=== PATIENT | female | born 1945 | race Caucasian/White ===

== ENCOUNTER 2019-05-06 13:48 | Outpatient (CLI) | payer MEDICARE, OTHER, SELFPAY ==
--- NOTE | 2019-05-10 10:49 | ONC FU_ITS ---
Dr. Short Patient Follow-Up Note Patient: Coni Olivares Unit #: [id number]: 1945 Dicatated By: Alf Short M.D.Date of Visit:May 06, 2019 Onc Med Follow-up/Prog Note Chief Complaint: Breast cancer. History of Present Illness: This is a 73 year-old woman with history of left breast cancer, stage IV, but with no evidence of disease. She was then found to have grade 1 infiltrating ductal carcinoma of the right breast, stage IA (T1c, N0, M0), ER/AZ positive and HER-2/bryon nonamplified. She had undergone left modified radical mastectomy for breast cancer in June of 1998. I was not able to obtain any of those records. She apparently did not receive adjuvant chemotherapy at that time. She did start adjuvant tamoxifen, but it was stopped after short time because of severe hot flashes. In July 2001 she underwent left upper lobectomy for a solitary pulmonary nodule. This was thought to be a solitary metastasis. At that time she was given adjuvant chemotherapy with 4 cycles of CAF, which she completed in October 2001. She was then given adjuvant hormonal therapy with Arimidex, which was stopped in June 2006 after completing 5 years of treatment. She underwent delayed left breast reconstruction in 2004. She was seen for a scheduled follow-up visit on 11/17/2015. At that time she had some nodularity in her right breast just lateral to the nipple areolar complex. She had subsequent evaluation with diagnostic mammogram and ultrasound, and those did appear suspicious. She was then seen by Dr. Skinner. She underwent excisional biopsy on 12/16/2015. Pathology showed grade 1 infiltrating ductal carcinoma. There was a component of high-grade DCIS, estimated 25% of the tumor volume. The tumor was ER positive at 93% and ER positive at 89%. The Ki-67 was intermediate at 17%. The tumor was negative for overexpression of HER-2/bryon, 2+ by IHC with amplification ratio 1.2 and 1.9 HER-2 copies/cell by FISH. On 12/30/2015 she underwent re-excision lumpectomy with right sentinel axillary lymph node biopsy. Pathology on the reexcision did show a microscopic focus residual DCIS. Tumor was noted within 1 mm of the superior margin. Two sentinel lymph nodes were free of metastatic tumor. I requested an Oncotype DX analysis of her tumor. The report came back as insufficient carcinoma present for analysis. This was difficult for me to understand, as her tumor measured 1.8 x 1.4 cm. However, a second sample was subsequently submitted, and it also came back insufficient for analysis. In the meantime, on 02/15/2016 she had presented to the emergency room in [place] with chest pain. She was found to have acute non-ST elevation myocardial infarction. She underwent semiurgent left heart catheterization with angioplasty and stent placement to the left anterior descending artery. She appeared stable clinically following that procedure, but she did require a portable defibrillator. She underwent radiation therapy to the right breast. She completed treatment on 05/10/2016 to a total dose of 5,856 cGy. She tolerated it well. Her other medical illnesses include hypertension, hyperlipidemia, type 2 diabetes, GERD, osteoporosis, and chronic anxiety. She also has a history of chronic urticaria. She indicates she was found to have a pituitary adenoma in 2011. She has a history of smoking a pack and a half of cigarettes daily for 30 years. She had quit for a period of 8 years, but then started smoking again, at least 1 pack of cigarettes daily. She does not drink alcohol. INTERIM HISTORY: I had seen her for a follow-up visit on 07/27/2016. At that time had reviewed options for adjuvant hormonal therapy. She was still having significant pain, and I deferred starting treatment pending a 1 month follow-up visit. She was also supposed to get a DEXA scan. She failed to come in for those appointments, and as of her follow-up visit on 12/07/2016 she had not started any treatment. Following that visit she did have her DEXA scan on 01/03/2017. It showed evidence of osteopenia with T score -2.2 in the lumbar spine. At that time I had recommended adjuvant hormonal therapy with exemestane, but for some reason it did not get started. In April 2017 she underwent kyphoplasty for a vertebral compression fracture at T12. Following her visit on 06/15/2017 she did start exemestane 25 mg daily. As of her followup visit in October 2017 she appeared stable clinically. She is seen for a follow-up visit. She has not been seen since her visit here in October 2017. To the best of my knowledge she has continued taking the exemestane, at least up until recently, as we were able to verify with her pharmacy that it was refilled as recently as 03/14/2019. She says her energy is about the same. She does have limited activity. ECOG score is 2. She says her appetite is okay, but her weight is down 20 pounds since her visit here in October 2017. She has no fever, night sweats, or hot flashes. She has shortness of breath with activity. She has a cough productive of yellowish sputum. She is still smoking 1 pack of cigarettes daily. She does not complain of chest pain. She has no GI complaints. She has frequent urination. She has no significant joint or bone pain. She does not complain of headache. She sometimes has dizziness. She has no focal neurologic symptoms. Medications: Citalopram Hydrobromide 1 (40 mg) Tablet Oral daily, Lisinopril 1 (20 mg) Tablet Oral daily, LORazepam 1 (0.5 mg) Tablet Oral b.i.d., MetFORMIN HCl 1 (1000 mg) Tablet Oral daily, Morphine Sulfate (15 mg) Tablet Oral q 4 hours PRN, Simvastatin 1 (20 mg) Tablet Oral daily Allergies: Keflex Review of Systems: Constitutional - Her energy level is the same. Her activity is limited. Appetite is OK, but she has lost weight. No fever, chills, hot flashes, or night sweats. ECOG score is 2, ENMT - She has sinus congestion/drainage. No mouth sores. No sore throat or difficulty swallowing, Hematologic/Lymphatic - She bruises easily, Respiratory - She has shortness of breath with activity. She has cough productive of yellowish sputum. No pleuritic pain or hemoptysis, Cardiovascular - No angina pain. No palpitations, Gastrointestinal - No nausea or vomiting. No heartburn or acid reflux. No diarrhea or constipation. No blood in the stool or black stools, Genitourinary (F) - No dysuria or hematuria. She has urinary frequency. No urgency or incontinence, Musculoskeletal - She has no significant joint or bone pain, Neurologic - No headache. She sometimes has dizziness. No numbness/paresthesias or other focal neurologic symptoms, Psychiatric - No anxiety or depression. No insomnia. Vital Signs: Performed on May 06, 2019 13:53 Height - 63.00 in Weight - 136.2 lbs (LOW) BSA - 1.64 sq.m BMI - 24.13 Temperature - 96.6 F (LOW) Pulse - 88 /min Respiration - 18 /min BP - 118/71 mm(hg) O2 Sat - 96 % Pain - 0 Physical Examination: Constitutional - She looks pretty good generally, Eyes - Sclerae nonicteric. Conjunctivae clear, ENMT - No lesions noted in the oral cavity, Hematologic/Lymphatic - No cervical or clavicular adenopathy, Respiratory - Lungs show some decrease in air movement bilaterally. There are mild expiratory rhonchi, Cardiovascular - Heart rhythm is regular. There is no murmur, gallop, or rub noted, Breasts - The right breast is generally firm and lumpy. There is no suspicious mass noted. There are no lesions noted in the left chest/breast reconstruction. There is no axillary adenopathy, Abdomen - Soft. Liver and spleen are not enlarged. There is no abdominal mass or ascites noted and there is no inguinal adenopathy, Extremities - No edema. Her feet are cool to touch. She has palpable dorsalis pedis pulses bilaterally, Neurologic - No focal neurologic deficits noted. Impression: 1. The patient has grade 1 infiltrating ductal carcinoma of the right breast, stage IA (T1c, pN0, M0), ER/AZ positive and HER-2/bryon negative. Oncotype DX was requested but not performed, as the specimen was reported to be insufficient for analysis. 2. She underwent excisional biopsy of right breast mass on 12/16/2015 followed by reexcision lumpectomy and right sentinel axillary lymph node biopsy on 12/30/2015. 3. She completed radiation therapy to the right breast on 05/10/2016, total dose 5856 cGy. 4. Her treatment was complicated by acute non-ST elevation myocardial infarction on 02/15/2016, for which she underwent coronary angioplasty/stent placement to the left anterior descending artery. 5. She had undergone left modified radical mastectomy for breast cancer in 1998. 6. She underwent left upper lobectomy for a solitary pulmonary nodule in 2001. This was thought to represent a solitary metastasis. 7. She then received adjuvant chemotherapy with 4 cycles of CAF, completed in October 2001. She received 5 years of adjuvant hormonal therapy with Arimidex, completed in June 2006. She had subsequently been followed on observation. Her other medical illnesses include: 8. Hypertension. 9. Hyperlipidemia. 10. Type II diabetes. 11. GERD. 12. Osteoporosis with vertebral compression fracture. 13. Vitamin D deficiency. 14. Chronic anxiety. 15. COPD. 16. Nicotine dependence (cigarettes). In May 2017 she began adjuvant hormonal therapy with exemestane 25 mg daily. She also began treatment with Prolia for osteoporosis. As of her follow-up visit in October 2017 she had been tolerating the exemestane without adverse effects, and there appear to be no evidence for recurrence of her breast cancer. At that point she did have evidence of diabetes, for which she was scheduled to see Dr. Delgado. She was then lost to follow-up, but she apparently has continued taking the exemestane, at least up until recently. Since her last visit there does appear to been some decline in her performance status, and she has had significant weight loss. There are no symptoms or obvious findings to suggest recurrence of her breast cancer. Plan: She will be scheduled to have lab studies, including CBC and comprehensive metabolic profile, and she will be scheduled for surveillance mammogram, which is overdue. She will have further evaluation as indicated. In the absence of any evidence of recurrence of her breast cancer, she will continue adjuvant hormonal therapy with exemestane 25 mg daily. Signed By: Alf Short M.D. <<Signature on File>>
== END 2019-05-06 13:49 | disposition home or self-care (01) ==
PROVIDERS: Family Provider Family Medicine; PCP Family Medicine; Visit Provider Internal Medicine Medical Oncology
DX: C50.811 Malignant neoplasm of overlapping sites of right female breast (principal); Z17.0 Estrogen receptor positive status [ER+]; E55.9 Vitamin D deficiency, unspecified; Z85.3 Personal history of malignant neoplasm of breast; I25.2 Old myocardial infarction; I10 Essential (primary) hypertension; E78.5 Hyperlipidemia, unspecified; E11.9 Type 2 diabetes mellitus without complications; K21.9 Gastro-esophageal reflux disease without esophagitis; M81.0 Age-related osteoporosis without current pathological fracture; F41.9 Anxiety disorder, unspecified; L50.9 Urticaria, unspecified; F17.210 Nicotine dependence, cigarettes, uncomplicated; Z79.811 Long term (current) use of aromatase inhibitors; Z90.2 Acquired absence of lung [part of]; Z92.21 Personal history of antineoplastic chemotherapy; Z95.5 Presence of coronary angioplasty implant and graft; Z95.810 Presence of automatic (implantable) cardiac defibrillator; Z92.3 Personal history of irradiation
CPT/HCPCS: 99214

== ENCOUNTER 2019-05-08 10:41 | Outpatient (CLI) | payer MEDICARE, OTHER, SELFPAY ==
--- NOTE | 2019-05-08 10:55 | MM_ITS ---
WS: [id number] DIAGNOSTIC RIGHT DIGITAL MAMMOGRAM WITH CAD and displacement views. HISTORY: History of breast cancer, LEFT mastectomy. COMPARISON: 10/26/2017 and 01/03/2017 TECHNIQUE: RIGHT craniocaudad, mediolateral oblique, and mediolateral views are submitted. Kori dis placement views. Computer aided detection utilized. Breast composition: There are scattered areas of fibroglandular density. Benign scattered calcificati ons throughout the breast. No soft tissue masses. Implants remains intact. MM/[place] [id number] IMPRESSION: BI-RADS: 2-Benign FOLLOW UP: 1 Year Follow-up
[2019-05-08 11:58] LABS: Basophils # 0.1 10^3/uL (0.0-0.1); Basophils % 0.7 %; Eosinophils # 0.1 10^3/uL (0.0-0.8); Eosinophils % 1.1 %; Hematocrit 47.2 % (37.0-47.0); Hemoglobin 16.2 g/dL (11.5-15.3); Lymphocytes % 10.2 %; Mean Corpuscular HGB Conc 34.3 g/dL (30.0-36.0); Mean Corpuscular Hemoglobin 32.1 pg (28.0-34.0); Mean Corpuscular Volume 93.5 fL (81-99); Mean Platelet Volume 9.8 fL (7.4-10.4); Monocytes # 0.5 10^3/uL (0.2-0.9); Monocytes % 4.6 %; Neutrophils # 8.4 10^3/uL (1.8-7.7); Neutrophils % 83.1 %; Nucleated Red Blood Cells % 0 %; Platelet Count 295 10^3/cmm (130-400); Red Blood Count 5.05 10^6/uL (4.1-5.3); Red Cell Distribution Width 13.7 % (12.1-15.1); White Blood Count 10.1 10^3/uL (4.0-10.0)
[2019-05-08 12:15] LABS: Alanine Aminotransferase 9 U/L (0-33); Albumin Level 4.1 g/dL (3.5-5.2); Alkaline Phosphatase 90 IU/L (35-105); Anion Gap 14.5 (5-19); Aspartate Amino Transferase 11 U/L (0-32); Blood Urea Nitrogen 10 mg/dL (8-23); Calcium 10.2 mg/Dl (8.8-10.2); Carbon Dioxide 31 mmol/L (22-29); Chloride 93 mmol/L (98-107); Glucose 451 mg/dL (74-106); Potassium 4.5 mmol/L (3.5-5.1); Sodium 134 mmol/L (136-145); Total Bilirubin 0.6 mg/dL (0.15-1.2); Total Protein 7.1 g/dL (6.6-8.7)
== END 2019-05-08 10:42 | disposition home or self-care (01) ==
LOC: ONCMED 10:48
PROVIDERS: Family Provider Family Medicine; PCP Family Medicine; Visit Provider Internal Medicine Medical Oncology
DX: Z85.3 Personal history of malignant neoplasm of breast (principal); Z90.12 Acquired absence of left breast and nipple; Z96.89 Presence of other specified functional implants
CPT/HCPCS: 36415; 77065; 80053; 85025

== ENCOUNTER 2020-09-15 21:42 | Inpatient (IN) | payer MEDICARE, OTHER, SELFPAY ==
[2020-09-15 21:55] VITALS: BP 190/81; PULSE 91; RESP 16; TEMP 36.9; O2SAT 96; BMI 19.8
--- NOTE | 2020-09-15 21:57 | CTR_ITS ---
PROCEDURE INFORMATION: Exam: CT Head Without Contrast Exam date and time: 09/15/2020 10:02 PM Age: 75 years old Clinical indication: Altered mental status/memory loss; Patient HX: AMS. Brought by ems/pd for wellness check. History of dementia. TECHNIQUE: Imaging protocol: Computed tomography of the head without contrast. Radiation optimization: All CT scans at this facility use at least one of these dose optimization techniques: automated exposure control; mA and/or kV adjustment per patient size (includes targeted exams where dose is matched to clinical indication); or iterative reconstruction. COMPARISON: CT head wo con* [id number] 02/19/2017 1:51 PM RADIATION DOSE METRICS: Total DLP (mGy-cm): 553.2 FINDINGS: Brain: Normal. No hemorrhage. Unremarkable white matter. No mass effect. Cerebral ventricles: No ventriculomegaly. Bones/joints: Unremarkable. No acute fracture. Paranasal sinuses: Visualized sinuses are unremarkable. No fluid levels. Mastoid air cells: Visualized mastoid air cells are well aerated. Soft tissues: Unremarkable. CT/CT head wo con* [id number] IMPRESSION: Negative for intracranial hemorrhage or mass effect. Radiation Dose CTDIVOL = (mGy): DLP = 553.2 (mGy-cm)
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
[2020-09-15 22:30] LABS: Basophils # 0.1 10^3/uL (0.0-0.1); Basophils % 0.6 %; Eosinophils # 0.2 10^3/uL (0.0-0.8); Eosinophils % 1.7 %; Hematocrit 35.1 % (37.0-47.0); Hemoglobin 11.9 g/dL (11.5-15.3); Lymphocytes # 1.1 10^3/uL (0.8-4.8); Lymphocytes % 8.5 %; Mean Corpuscular HGB Conc 33.9 g/dL (30.0-36.0); Mean Corpuscular Hemoglobin 27.3 pg (28.0-34.0); Mean Corpuscular Volume 80.5 fL (81-99); Mean Platelet Volume 9.2 fL (7.4-10.4); Monocytes # 0.7 10^3/uL (0.2-0.9); Monocytes % 4.9 %; Neutrophils # 11.19 10^3/uL (1.8-7.7); Neutrophils % 83.9 %; Nucleated Red Blood Cells % 0 %; Platelet Count 566 10^3/cmm (130-400); Red Blood Count 4.36 10^6/uL (4.1-5.3); Red Cell Distribution Width 13.5 % (12.1-15.1); White Blood Count 13.3 10^3/uL (4.0-10.0)
[2020-09-15 22:51] LABS: Alanine Aminotransferase 6 U/L (0-33); Albumin Level 3.9 g/dL (3.5-5.2); Alkaline Phosphatase 97 IU/L (35-105); Anion Gap 16.1 (5-19); Aspartate Amino Transferase 6 U/L (0-32); Blood Urea Nitrogen 14 mg/dL (8-23); Calcium 9.5 mg/dL (8.5-10.5); Carbon Dioxide 29 mmol/L (22-29); Chloride 89 mmol/L (98-107); Creatinine Clr Calc Pharmacy 48.8852; Globulin 3.6 g/dL (1.3-4.6); Glucose 465 mg/dL (65-115); Osmolality Calculated 291 mOsm/kg (285-295); Potassium 4.1 mmol/L (3.5-5.1); Sodium 130 mmol/L (136-145); Total Bilirubin 0.3 mg/dL (0.15-1.2); Total Protein 7.5 g/dL (6.6-8.7)
[2020-09-15 22:52] LABS: Lactic Sepsis W/Reflex 0.9 mmol/L (0.5-2.2)
[2020-09-15] MEDS: insulin regular-human 100 units/1 mL 10 UNIT IVP (23:37)
[2020-09-15 23:40] VITALS: BP 196/89; PULSE 89; RESP 17; O2SAT 96
[2020-09-15] MEDS: sodium chloride 0.9% 500 ML 999 ML IV (23:40)
[2020-09-16] VITALS (10 sets, daily range): BP systolic 158–175; BP diastolic 58–88; PULSE 76–96; RESP 16–20; TEMP 36.6–36.9; O2SAT 93–100
[2020-09-16 02:14] LABS: Ketone (Acetest) Serum Negative (Negative)
[2020-09-16 02:21] LABS: ABG PCO2 44.5 mmHg (35-45); ABG PH Result 7.46 (7.35-7.45); Alveolar-Arterial Oxygen Gradi 3.3 mmHg (5-10); Base Excess ABG 7.3 mmol/L (-2.0-2.0); Blood Gas Sample Site Brachial, right; Blood Gas Sample Type Arterial; Carboxyhemoglobin 3.9 %THgb (0.4-20.1); HCO3 ABG 31.9 mmol/L (22-26); HGB O2 Sat 91.4 % (95-100); Ionized Calcium Level - ABG 1.2 mmol/L (1.1-1.4); Methemoglobin 0.7 % (0.4-1.5); Oxygen Device ROOM AIR; Oxygen Saturation ABG 95.9; Potassium Level - ABG 4.3 mmol/L (3.5-5.0); Total Hemoglobin 10.5 g/dL (12-16)
[2020-09-16 02:22] LABS: CKMB 3.2 ng/mL (0-5.34); Creatine Phosphokinase 33 U/L (26-192)
[2020-09-16] MEDS: insulin regular-human 100 units/1 mL 10 UNIT IVP (02:50)
[2020-09-16] MEDS: sodium chloride 0.9% 1,000 ML 999 ML IV (03:05)
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
[2020-09-16] MEDS: sodium chloride 0.9% 1,000 ML 75 ML IV (06:08)
[2020-09-16] MEDS: enoxaparin 40 mg/0.4 mL Syringe SUBCUT (06:09)
[2020-09-16 06:33] LABS: Glucose Point of Care 437 mg/dL (70-110)
[2020-09-16] MEDS: aspirin 81 mg EC Tablet PO (08:22)
[2020-09-16] MEDS: lisinopril 10 mg Tablet 20 MG PO (08:22)
[2020-09-16 10:10] LABS: Estmated Average Glucose 315; Hemoglobin A1C 12.6 % (4.0-6.0)
--- NOTE | 2020-09-16 10:10 | PC.CHAP ---
Pastoral Care Encounter/Spiritual Assessment Type of Contact [] Declined apprentice funeral director visit [] Patient/Family/Request visit [] Outpatient visit [] Follow-up visit [] Physician referral [] Code/Alert [x] Routine visit [] Staff referral [] Actively dying [] Patient sleeping [] Family support [] [] Out of room [] Palliative care [] [x] Receiving care in room [] Pre-surgical visit [] Trauma [] Long length of stay [] ICU visit [] Other: Relational/Emotional Strength [] Patient feels connected with others/family/visitors/staff [] Distress [] Loneliness/isolation [] Abandonment Spirituality of Patient [] Person of Amanda [] Attends Synagogue of their Amanda [] Believes in Prayer [] Reads Bible or Anglican materials [] There are Spiritual issues to be addressed [employer] District Clerk Interventions [] Prayer [] Active listening [] Non-anxious presence [] Spiritual/emotional support [] Crisis/trauma care [] Spiritual counseling [] Bereavement support [] Provided bereavement packet [] Provided Bible/devotional materials [] Provided toy/stuffed animal, coloring book to patient or family member [] Provided Communion [] Anointing/[place] [] Salvation [] Completed spiritual assessment [] Other: Impact on Illness or Injury [] Angry [] Fearful [] Anxious [] Often cries [] Exhaustion [] Unable to work [] Unable to attend gnosticism [] Unable to walk/stand [] Unable to read [] Unable to drive [] Unable to eat/drink [] Unable to sleep [] Unable to be with family [] Patient intubated [] Other: Summary Time spent with patient
[2020-09-16 10:19] LABS: Thyroid Stimulating Hormone 1.14 uIU/mL (0.27-4.20)
--- NOTE | 2020-09-16 10:30 | PC.NURSE ---
[facility]
[2020-09-16 11:05] LABS: Vitamin B12 327 pg/mL (232-1245)
--- NOTE | 2020-09-16 11:14 | CT_ITS ---
WS: [id number] CT ABDOMEN AND PELVIS WITH CONTRAST HISTORY: abdominal pain, , possible RLQ mass TECHNIQUE: Imaging performed of the abdomen and pelvis with IV contrast. Single phase imaging of the abdomen. Coronal and sagittal reformats are submitted. All CT scans at [facility] use at least one of these dose optimization techniques: automated exposure control; mA and/or kV adjustment per patient size (includes targeted exams where dose is matched to clinical indication); or iterativ e reconstruction. IV CONTRAST: Omnipaque 300; 95 mL IV. Oral contrast: No DLP: 743.94 mGy.cm COMPARISON: 07/13/2014 Lower thorax: Seen on the fluid dynamicist localizer and at the lung bases is a thick-walled probable cavitary l esion in the RIGHT lower lobe measuring 3.5 x 3.5 cm. Small bilateral pleural effusions. Heart is nor mal size. No hiatal hernia. Bilateral breast implants. Liver/biliary system: Normal size liver. Several low-attenuation masses within the liver. The largest in the RIGHT lobe measures 13 mm and was not present on the prior study from 2014. No portal vein th rombosis. There is mild central bile duct dilatation. Gallbladder: Status post cholecystectomy. Common bile duct is mildly prominent at 7 mm. Pancreas: Atrophic pancreas. Spleen: Normal size spleen. Heavy calcification within the splenic artery. Calcified 18 mm tortuous a rtery versus aneurysm. Adrenal glands: Normal. Right kidney: Mild cortical thinning. Moderate to severe hydronephrosis and hydroureter. Ureter is di lated to the urinary bladder. Left kidney: Mild diffuse cortical thinning. Moderate to severe hydronephrosis and hydroureter. Urete r is dilated to the bladder. Aorta: Mild atherosclerosis with no aneurysm. Lymphadenopathy: None. Free fluid: Mild soft tissue anasarca. Mesenteric edema with no significant amount of ascites. GI tract: No GI tract obstruction. Abdominal wall: Unremarkable abdominal wall. No hernia. Pelvis: Markedly distended urinary bladder. Bladder extends over length of 15 cm and there is very mi ld wall thickening. No focal mass. Bones: T12 20% compression fracture with vertebroplasty. CT/CT abdomen pelvis w con* [id number] IMPRESSION: 1. Partially visualized cavitary mass in the RIGHT lower lobe measures 3.5 x 3 .5 cm. This may be neoplastic or infectious/pulmonary abscess process. Recommen d further evaluation by CT. Chest CT with IV contrast recommended. 2. Small bilateral pleural effusions. 3. Severe bilateral hydroureteronephrosis. May be secondary to an overly diste nded urinary bladder. Consider urinary bladder catheterization. 4. Mild diffuse soft tissue anasarca. 5. Hypodensities within the liver are too small to characterize but very early metastatic lesions may be possible or hemangiomas or cysts. Recommend follow-u p CT abdomen and pelvis in 3 months. 6. Severe atherosclerosis aorta and splenic artery.
[2020-09-16 11:36] LABS: Glucose Point of Care 379 mg/dL (70-110)
[2020-09-16 12:12] LABS: Glucose Point of Care 445 mg/dL (70-110)
[2020-09-16] MEDS: iohexol 300 mg/mL 100 mL Btl IV ×2 (12:17→14:35)
--- NOTE | 2020-09-16 13:22 | CT_ITS ---
WS: [id number] CT CHEST WITH INTRAVENOUS CONTRAST HISTORY: right lung mass TECHNIQUE: Contiguous 5 mm axial imaging performed on the thorax. Coronal and sagittal reformats are submitted. All CT scans at [facility] use at least one of these dose optimization techniq ues: automated exposure control; mA and/or kV adjustment per patient size (includes targeted exams wh ere dose is matched to clinical indication); or iterative reconstruction. CONTRAST: Omnipaque 300; 75 mL IV. DLP: 440.12 mGy.cm COMPARISON: 11/12/2009. Lungs and central airway: Moderate pulmonary hyperexpansion from emphysema. Thick wall cavitary lesio n RIGHT lower lobe abuts the portion of the superior major fissure. Cavitary mass measures 4.3 x 4.1 cm. There is an additional solid mass in the medial LEFT upper lobe abutting the mediastinum and the descending aorta measuring 2.2 x 2.9 cm. Otherwise fibrotic changes. No additional nodules. Pleura: Small bilateral pleural effusions. Heart and pericardium: Normal size heart with no pericardial effusion. Mediastinum and dyllan: Numerous mediastinal and hilar lymph nodes. Lymph nodes in the anterior mediast inum with extension pretracheal and hilar regions and subcarinal. Largest confluent lymph node is sub carinal measuring 3.2 x 1.8 cm. Additional enlarged lymph nodes extending into the AP window. Partial obstruction of the proximal LEFT main pulmonary artery by adjacent lymph nodes. Vessels: Mild atherosclerosis of the aorta. Normal size pulmonary artery. Chest wall and lower neck: Enlarged bilateral thyroid with substernal extension consistent with a goi ter. Bilateral breast implants. Numerous surgical clips are noted within the LEFT axilla from prior n odal dissection. Upper abdomen: There is mild central bile duct dilatation which in part may be due to the prior reinaldo cystectomy. There are a few scattered hypodensities within the liver. The largest measures 11 mm in t he RIGHT lobe. Cannot exclude metastatic disease. Hydronephrosis involving the upper kidneys and impr panchito since the prior study. Gallegos catheter may have been placed since the prior examination. Osseous structures: T12 vertebroplasty. Deformity involving several of the ribs in the posterior uppe r LEFT thorax similar to the prior study from 2009 and may be postoperative. CT/CT chest w con* [id number] IMPRESSION: 1. Cavitary mass RIGHT lower lobe measures 4.3 x 4.1 cm. Most consistent with neoplasm. 2. Additional solid mass medial LEFT upper lobe measures 2.2 x 2.9 cm. 3. Lymphadenopathy involving the mediastinum and hilum. Partial obstruction of the proximal LEFT main pulmonary artery due to the LEFT hilar adenopathy. 4. Bilateral thyroid goiter. 5. Small bilateral pleural effusions. 6. Bilateral breast implants and prior LEFT axillary rico dissection. 7. Indeterminate for metastatic liver disease.
--- NOTE | 2020-09-16 13:24 | PM.PN ---
Subjective Subjective: Interval history: History and physical reviewed. Coni reports that her abdomen hurts a little, but otherwise does not have any complaints. She is obviously confused. Medications: Reviewed: Yes Vitals/I&O/Wt Last Vital Signs Temp 98.4 F 09/16/20 11:33 Pulse 93 09/16/20 11:33 Resp 16 09/16/20 11:33 BP 164/58 09/16/20 11:33 Pulse Ox 94 09/16/20 11:33 09/15/20 09/16/20 09/16/20 22:59 06:59 14:59 Intake Total 1500 / 1500 480 / 480 Balance 1500 / 1500 480 / 480 Weight last 48 hrs Weight 50.802 kg Physical Exam Narrative: EXAM NARRATIVE: General exam has a confused female, who does not appear to be in any distress Neck is supple no lymphadenopathy or thyromegaly Cardiovascular regular rate and rhythm without murmur Lungs diminished breath sounds bilaterally but clear Abdomen is soft with positive bowel sounds. No obvious organomegaly. Masses noted in the right lower quadrant exam deferred Extremities no cyanosis clubbing or edema Neurologic is confused with no obvious focal deficits. Data : 09/15/20 22:25 09/15/20 22:25 A&P Assessment and plan (1) Dementia: Patient with significant dementia, unable to care for self at home, left alone and unsafe situation. I have checked a B12 and TSH this morning that were normal. CT head demonstrated no acute changes. Status: Acute (2) Hyperglycemia: Hemoglobin A1c is markedly elevated at 12.6 demonstrating poor control. Continue consistent carb diet Add long-acting insulin, adjust as needed Sliding scale insulin Probable resume Metformin when safe Status: Acute (3) Urinary retention: Mass felt on exam today, therefore CT abdomen and pelvis was ordered. This demonstrated marked urinary retention with bilateral hydronephrosis. Place Gallegos catheter Placed on Flomax 0.4 mg daily Check urinalysis to rule out infection. Consider renal ultrasound in several days to make sure hydronephrosis resolves with catheter placement. Status: Acute (4) Lung mass: Identified incidentally on CT abdomen and pelvis. Concern of possible hepatic metastasis as well. Check CT chest with contrast. Status: Acute (5) Tobacco dependency: Encourage cessation Status: Acute Additional A&P Information Full code currently Lovenox for DVT prophylaxis with May need skilled placement. Attestations Medical Necessity Statement*: Needs continued hospitalization secondary to dementia with unsafe living situation, compounded now by severe hydronephrosis with urinary retention as well as new diagnosis of lung mass. UTI has not been excluded as complicating factor, awaiting urinalysis. Coding Level of Care Code Acute Financial Quantitative Analyst for [facility] Fwd Diagnoses Dementia F03.90 Hyperglycemia R73.9 Urinary retention R33.9 Lung mass R91.8 Tobacco dependency F17.200
[2020-09-16 15:16] LABS: Urine Appearance Clear (CLEAR); Urine Color Straw (Yellow)
[2020-09-16 15:17] LABS: Bilirubin Urine Neg (Negative); Blood Urine Neg (Negative); Glucose Urine UA 4+ (Normal); Ketones Urine Negative (Negative); Leukocyte Esterase Urine 1+ (Negative); Nitrate Urine Negative (Negative); Protein Urine Neg (Negative); Urobilinogen Urine Norm (Negative); pH Urine 6.5 (5-7)
[2020-09-16 15:24] LABS: Amphetamines Screen Urine Negative (Negative); Barbiturates Screen Urine Negative (Negative); Benzodiazepines Screen Urine Negative (Negative); Cocaine Screen Urine Negative (Negative); Opiate Screen Urine Negative (Negative); PCP Screen Urine Negative (Negative); THC Screen Urine Negative (Negative)
[2020-09-16] MEDS: acetaminophen 325 mg Tablet PO (15:30)
[2020-09-16] MEDS: tamsulosin 0.4 mg Capsule PO (15:31)
[2020-09-16 15:36] LABS: RBC Urine 0-4 /hpf (0-2)
[2020-09-16 15:37] LABS: Add Urine Culture? Yes; Bacteria Urine TRACE /hpf; Squamous Epithelial Cell Urine 0-4 /hpf (0-5)
[2020-09-16 17:41] LABS: Glucose Point of Care 247 mg/dL (70-110)
[2020-09-16] MEDS: insulin glargine 100 units/1 mL 10 UNIT SUBCUT ×2 (17:54→21:27)
[2020-09-16] MEDS: cefTRIAXone 1,000 MG in sodium chloride 0.9% (plus) 50 ML 100 MG IV (18:33)
[2020-09-16 21:04] LABS: Glucose Point of Care 286 mg/dL (70-110)
[2020-09-16] MEDS: nicotine 21 mg Patch 1 PATCH TRANSDERMA (21:39)
[2020-09-16 22:38] LABS: Glucose Point of Care 228 mg/dL (70-110)
[2020-09-17] MEDS: acetaminophen 325 mg Tablet PO ×2 (00:14→23:51)
[2020-09-17 03:30] VITALS: BP 140/61; PULSE 89; RESP 18; TEMP 36.4; O2SAT 97
[2020-09-17] MEDS: enoxaparin 40 mg/0.4 mL Syringe SUBCUT (04:28)
--- NOTE | 2020-09-17 05:30 | PC.NURSE ---
Shift Summary Patient was restless most of the night; pulling at her oleary catheter wanting it out. Patient's urine output color was pink/red tinged from pulling at the catheter. Patient was redirected and finally rested for a few hours. Patients urine color has improved throughout the night. Patient has had good urine output throughout the night. Patient is currently resting in bed watching tv.
[2020-09-17 06:41] LABS: Basophils # 0.1 10^3/uL (0.0-0.1); Basophils % 0.8 %; Eosinophils # 0.3 10^3/uL (0.0-0.8); Eosinophils % 2.4 %; Hematocrit 32.8 % (37.0-47.0); Hemoglobin 10.5 g/dL (11.5-15.3); Lymphocytes # 0.9 10^3/uL (0.8-4.8); Lymphocytes % 7.2 %; Mean Corpuscular Hemoglobin 26.7 pg (28.0-34.0); Mean Corpuscular Volume 83.5 fL (81-99); Mean Platelet Volume 9.5 fL (7.4-10.4); Monocytes # 0.6 10^3/uL (0.2-0.9); Neutrophils # 10.48 10^3/uL (1.8-7.7); Neutrophils % 84.3 %; Nucleated Red Blood Cells % 0 %; Platelet Count 483 10^3/cmm (130-400); Red Blood Count 3.93 10^6/uL (4.1-5.3); White Blood Count 12.4 10^3/uL (4.0-10.0)
[2020-09-17 06:59] LABS: Alanine Aminotransferase < 5 U/L (0-33); Albumin Level 3.2 g/dL (3.5-5.2); Alkaline Phosphatase 77 IU/L (35-105); Anion Gap 12.8 (5-19); Aspartate Amino Transferase 8 U/L (0-32); Blood Urea Nitrogen 15 mg/dL (8-23); Calcium 8.8 mg/dL (8.5-10.5); Carbon Dioxide 29 mmol/L (22-29); Chloride 94 mmol/L (98-107); Creatinine Clr Calc Pharmacy 48.8852; Globulin 3.6 g/dL (1.3-4.6); Glucose 226 mg/dL (65-115); Osmolality Calculated 282 mOsm/kg (285-295); Potassium 3.8 mmol/L (3.5-5.1); Sodium 132 mmol/L (136-145); Total Bilirubin 0.2 mg/dL (0.15-1.2); Total Protein 6.8 g/dL (6.6-8.7)
[2020-09-17 07:21] LABS: Glucose Point of Care 292 mg/dL (70-110)
[2020-09-17] MEDS: tamsulosin 0.4 mg Capsule PO (07:47)
[2020-09-17] MEDS: aspirin 81 mg EC Tablet PO (07:47)
[2020-09-17] MEDS: lisinopril 10 mg Tablet 20 MG PO (07:47)
[2020-09-17] MEDS: nicotine 21 mg Patch 1 PATCH TRANSDERMA (07:48)
[2020-09-17 08:00] VITALS: BP 140/61; PULSE 89; RESP 18; TEMP 36.4; O2SAT 97
[2020-09-17 10:34] LABS: Glucose Point of Care 254 mg/dL (70-110)
--- NOTE | 2020-09-17 11:16 | PC.CHAP ---
Pastoral Care Encounter/Spiritual Assessment Type of Contact [] Declined c python developer visit [] Patient/Family/Request visit [] Outpatient visit [x] Follow-up visit [] Physician referral [] Code/Alert [] Routine visit [] Staff referral [] Actively dying [] Patient sleeping [] Family support [] [] Out of room [] Palliative care [] [] Receiving care in room [] Pre-surgical visit [] Trauma [] Long length of stay [] ICU visit [] Other: Relational/Emotional Strength [] Patient feels connected with others/family/visitors/staff [] Distress [] Loneliness/isolation [] Abandonment Spirituality of Patient [] Person of Amanda [] Attends Taoism of their Amanda [] Believes in Prayer [] Reads Bible or Scientologist materials [] There are Spiritual issues to be addressed Buckle Sorter Interventions [] Prayer [] Active listening [] Non-anxious presence [] Spiritual/emotional support [] Crisis/trauma care [] Spiritual counseling [] Bereavement support [] Provided bereavement packet [] Provided Bible/devotional materials [] Provided toy/stuffed animal, coloring book to patient or family member [] Provided Communion [] Anointing/[place] [] Salvation [] Completed spiritual assessment [] Other: Impact on Illness or Injury [] Angry [] Fearful [] Anxious [] Often cries [] Exhaustion [] Unable to work [] Unable to attend jew [] Unable to walk/stand [] Unable to read [] Unable to drive [] Unable to eat/drink [] Unable to sleep [] Unable to be with family [] Patient intubated [] Other: Summary Follow-up visit Time spent with patient 5 mins
--- NOTE | 2020-09-17 11:29 | P.PN_ITS ---
Subjective Subjective: Interval history: Coni reports she is doing okay this morning. She no longer has any abdominal pain. I explained to her regarding her urinary retention, and her lung mass. She indicates that she would like this worked up, but she also indicates it is 2003. I tried to call her family, who was caring for her prior to this hospital stay but could not reach him. There are multiple social issues going on that have required discharge planning evaluation. Medications: Reviewed: Yes Vitals/I&O/Wt Last Vital Signs Temp 97.5 F L 09/17/20 08:00 Pulse 89 09/17/20 08:00 Resp 18 09/17/20 08:00 BP 140/61 09/17/20 08:00 Pulse Ox 97 09/17/20 08:00 09/16/20 09/17/20 09/17/20 22:59 06:59 14:59 Intake Total 1165 / 1645 345 / 1990 Output Total 900 / 900 2520 / 3420 Balance 265 / 745 -2175 / -1430 Weight last 48 hrs Weight 50.802 kg Physical Exam Narrative: EXAM NARRATIVE: General exam has a confused female who initially reports is 2004. She is able to state the month, is oriented to her self, and carry on a conversation. Neck is supple no lymphadenopathy or thyromegaly Cardiovascular regular rate and rhythm without murmur Lungs diminished breath sounds bilaterally but clear Abdomen is soft with positive bowel sounds. No obvious organomegaly. Masses noted in the right lower quadrant Extremities no cyanosis clubbing or edema Neurologic is confused with no obvious focal deficits. Urinary Catheter Management^: Gallegos: Cath Placed During This Visit: yes Reason for Continuing Indwelling Catheter: Assist Healing of Perineal & Sacral Wounds- Incontinent Patients Urinary Catheter Date of Insertion: 09/16/20 Urinary Catheter Time of Insertion: 14:30 Data : 09/17/20 05:44 09/17/20 05:44 A&P Assessment and plan (1) Dementia: Patient with significant dementia, unable to care for self at home, left alone and unsafe situation. I have checked a B12 and TSH that were normal. CT head demonstrated no acute changes. Status: Acute (2) Hyperglycemia: Hemoglobin A1c is markedly elevated at 12.6 demonstrating poor control. Continue consistent carb diet Continue long-acting insulin. Increase Lantus to 15 units Sliding scale insulin Probable resume Metformin when safe Status: Acute (3) Urinary retention: Mass felt on exam today, therefore CT abdomen and pelvis was ordered. This demonstrated marked urinary retention with bilateral hydronephrosis. Gallegos catheter placed 09/17 and patient placed on Flomax. Had approximately 800 cc UTI suspected so placed on Rocephin. Culture pending. Consider renal ultrasound in several days to make sure hydronephrosis resolves with catheter placement. Status: Acute (4) Lung mass: CT chest demonstrates likely malignancy right chest, with another nodule left. I briefly asked the patient whether she would want this evaluated and she indicated she would, but she does have confusion. Need to discuss with her caregiver as well. I do not think at this point she would be a great candidate for any kind of treatment secondary to her confusion. Status: Acute (5) Tobacco dependency: Encourage cessation Status: Acute Additional A&P Information Full code currently Lovenox for DVT prophylaxis with May need skilled placement. Attestations Medical Necessity Statement*: Needs continued hospitalization, for treatment of UTI with IV antibiotics as well as clarification of treatment and further investigation of lung mass considering her underlying dementia. Coding Level of Care Code Acute Supervisor Braiding for [facility] Diagnoses Dementia F03.90 Hyperglycemia R73.9 Urinary retention R33.9 Lung mass R91.8 Tobacco dependency F17.200
[2020-09-17 11:41] VITALS: BP 145/70; PULSE 94; RESP 18; TEMP 37; O2SAT 94
[2020-09-17 15:43] VITALS: BP 138/68; PULSE 67; RESP 18; TEMP 36.9; O2SAT 96
[2020-09-17 17:15] LABS: Glucose Point of Care 367 mg/dL (70-110)
[2020-09-17] MEDS: cefTRIAXone 1,000 MG in sodium chloride 0.9% (plus) 50 ML 100 MG IV (17:19)
[2020-09-17 19:10] VITALS: BP 165/75; PULSE 101; RESP 18; TEMP 37; O2SAT 96
[2020-09-17 20:23] LABS: Glucose Point of Care 288 mg/dL (70-110)
[2020-09-17] MEDS: insulin glargine 100 units/1 mL 15 UNIT SUBCUT (21:10)
[2020-09-17 23:10] VITALS: PULSE 99; RESP 18; TEMP 36.9; O2SAT 96
[2020-09-18 01:07] VITALS: BP 178/80; PULSE 102
[2020-09-18] MEDS: lisinopril 10 mg Tablet 20 MG PO ×2 (01:28→10:06)
--- NOTE | 2020-09-18 03:19 | PC.NURSE ---
Patient's BP was found to be 178/[address] Dennison was notified of current BP. Physician ordered administration of 0900 lisinopril 20mg.
[2020-09-18 04:00] VITALS: BP 188/79; PULSE 95; RESP 18; TEMP 36.8; O2SAT 95
[2020-09-18] MEDS: enoxaparin 40 mg/0.4 mL Syringe SUBCUT (04:35)
[2020-09-18 06:26] LABS: Glucose Point of Care 265 mg/dL (70-110)
[2020-09-18 08:00] VITALS: BP 166/70; PULSE 104; RESP 18; TEMP 36.7; O2SAT 94
--- NOTE | 2020-09-18 09:26 | P.PN_ITS ---
Subjective Subjective: Interval history: Coni reports she is doing okay. No pain. She would like the catheter out. I spoke extensively with her yesterday regarding overall goals. Medications: Reviewed: Yes Vitals/I&O/Wt Last Vital Signs Temp 98.0 F 09/18/20 08:00 Pulse 104 H 09/18/20 08:00 Resp 18 09/18/20 08:00 BP 166/70 09/18/20 08:00 Pulse Ox 94 09/18/20 08:00 09/17/20 09/18/20 09/18/20 22:59 06:59 14:59 Intake Total 530 / 770 Output Total 650 / 650 975 / 1625 Balance -120 / 120 -975 / -855 Physical Exam Narrative: EXAM NARRATIVE: General exam has a confused female no distress. Would like catheter out.. Neck is supple no lymphadenopathy or thyromegaly Cardiovascular regular rate and rhythm without murmur Lungs diminished breath sounds bilaterally but clear Abdomen is soft with positive bowel sounds. No obvious organomegaly. Masses noted in the right lower quadrant Extremities no cyanosis clubbing or edema Neurologic is confused with no obvious focal deficits. Urinary Catheter Management^: Gallegos: Cath Placed During This Visit: yes Reason for Continuing Indwelling Catheter: Acute Urinary Retention or Obstruction Urinary Catheter Date of Insertion: 09/16/20 Urinary Catheter Time of Insertion: 14:30 Data : 09/17/20 05:44 09/17/20 05:44 A&P Assessment and plan (1) Dementia: Patient with significant dementia, unable to care for self at home, left alone and unsafe situation. I have checked a B12 and TSH that were normal. CT head demonstrated no acute changes. She has significant weakness as well which would benefit from rehabilitation. Status: Acute (2) Hyperglycemia: Hemoglobin A1c is markedly elevated at 12.6 demonstrating poor control. Continue consistent carb diet Continue long-acting insulin in the form of Lantus Sliding scale insulin Probable resume Metformin when safe Status: Acute (3) Urinary retention: Mass felt on exam today, therefore CT abdomen and pelvis was ordered. This demonstrated marked urinary retention with bilateral hydronephrosis. Gallegos catheter placed 09/17 and patient placed on Flomax. Had approximately 800 cc UTI suspected so placed on Rocephin. Culture pending. reports he would like rehabilitation, but also focused on comfort. Secondary to this urinary catheter will be removed even though she has hydronephrosis bilaterally. We will monitor to make sure she does not have any severe pain, and she continues to urinate. He realizes this may cause kidney damage, frequent UTIs, renal failure. Continue Flomax. Status: Acute (4) Lung mass: CT chest demonstrates likely malignancy right chest, with another nodule left. After being able to contact and discuss with he reports she has a h istory of lung cancer, for which they have chosen no intervention. No further work-up will be performed. Status: Acute (5) Tobacco dependency: Encourage cessation Status: Acute Additional A&P Information Will need to change to allow natural . Will attempt to discuss with today. Lovenox for DVT prophylaxis with Needs skilled placement for weakness No need for laboratory tomorrow. Attestations Medical Necessity Statement*: Needs continued hospitalization, secondary to significant weakness with high risk for fall in this patient he needs continued therapy as well as IV antibiotics for UTI pending culture. Coding Level of Care Code Acute Middle School Guidance Counselor for g Fwd Diagnoses Dementia F03.90 Hyperglycemia R73.9 Urinary retention R33.9 Lung mass R91.8 Tobacco dependency F17.200
[2020-09-18] MEDS: tamsulosin 0.4 mg Capsule PO (10:06)
[2020-09-18] MEDS: nicotine 21 mg Patch 1 PATCH TRANSDERMA (10:06)
[2020-09-18] MEDS: aspirin 81 mg EC Tablet PO (10:06)
[2020-09-18 11:08] VITALS: BP 172/82; PULSE 98; RESP 18; TEMP 36.8; O2SAT 97
[2020-09-18 11:14] LABS: Glucose Point of Care 379 mg/dL (70-110)
--- NOTE | 2020-09-18 15:02 | PC.RESP ---
Pulmonary Rehab information sent to patient.
[2020-09-18 15:30] VITALS: BP 169/75; PULSE 89; RESP 18; TEMP 36.6; O2SAT 97
[2020-09-18 16:58] LABS: SARS Covid-2 Antigen Negative (Negative)
[2020-09-18 17:13] LABS: Glucose Point of Care 282 mg/dL (70-110)
[2020-09-18] MEDS: acetaminophen 325 mg Tablet PO ×2 (17:56→21:20)
[2020-09-18] MEDS: cefTRIAXone 1,000 MG in sodium chloride 0.9% (plus) 50 ML 100 MG IV (17:56)
[2020-09-18 19:45] VITALS: BP 159/71; PULSE 99; RESP 18; TEMP 36.6; O2SAT 97
[2020-09-18 20:26] LABS: Glucose Point of Care 414 mg/dL (70-110)
[2020-09-18] MEDS: insulin glargine 100 units/1 mL 15 UNIT SUBCUT (21:20)
[2020-09-19] VITALS: BP 126/67; PULSE 99; RESP 16; TEMP 36.8; O2SAT 97
[2020-09-19 03:44] VITALS: BP 137/75; PULSE 100; RESP 16; TEMP 36.7; O2SAT 95
[2020-09-19] MEDS: enoxaparin 40 mg/0.4 mL Syringe SUBCUT (04:00)
--- NOTE | 2020-09-19 05:02 | PC.NURSE ---
Shift Summary Patient has been restless during the first part of this shift. Several episodes of incontinence requiring full bed changes. Patient has asked several time for her cigarettes and to go outside and smoke. Has been redirected by both this nurse and other staff. Finally agreed to go to bed and has rested well the remainder of the night.
--- NOTE | 2020-09-19 05:06 | PC.NURSE ---
Shift Summary Patient has had no complaints of pain during this shift and slept fairly well tonight. forgets to use call light at times to get help and tries to get out of bed by herself. Bed alarm is set for safety. Patient up with one assist with walker.
[2020-09-19 08:00] VITALS: BP 143/67; PULSE 96; RESP 16; TEMP 36.5; O2SAT 94
[2020-09-19 08:25] LABS: Glucose Point of Care 234 mg/dL (70-110)
[2020-09-19] MEDS: aspirin 81 mg EC Tablet PO (09:30)
[2020-09-19] MEDS: nicotine 21 mg Patch 1 PATCH TRANSDERMA (09:30)
[2020-09-19] MEDS: tamsulosin 0.4 mg Capsule PO (09:30)
--- NOTE | 2020-09-19 09:38 | PM.DCS ---
Discharge Providers Date of Admission: 09/16/20 13:24 Date of Discharge: September 19, 2020 Attending Provider at Admission: Danii Dennison MD Attending Provider at Discharge: Aquiles Charlton MD Primary Care Provider: Santo Delgado MD Diagnoses at Discharge Discharge Diagnosis (1) Dementia: Status: Acute (2) Hyperglycemia: Status: Acute (3) Urinary retention: Status: Acute (4) Lung mass: Status: Acute (5) Tobacco dependency: Status: Acute Reason for Visit Reason for Visit: AMS Hospital Course Hospital Course 75-year-old female with past medical history of COPD, CAD status post stent, hypertension, dyslipidemia, diabetes,Grade 1 infiltrating ductal carcinoma of right breast status post excisional biopsy of right breast mass followed by reexcision lumpectomy status post radiotherapy left modified radial mastectomy 1999 was brought in by the [facility] , [facility] checked on her because her was found in [place] who was trying to pay electricity bill, he seemed confused which prompted [facility] to check on Ms. Olivares.Her home condition was very poor, there was no electricity, no other family member present hence was brought to the ER for further evaluation. Patient is stating that for last few days she has been experiencing polyuria polydipsia and polyphagia. She was initially admitted for the management of Poorly controlled diabetes. During the hospital stay further work-up revealed right lung mass on the CT chest I.V contrast Cavitary mass RIGHT lower lobe measures 4.3 x 4.1 cm. Most consistent with neoplasm. Additional solid mass medial LEFT upper lobe measures 2.2 x 2.9 cm. Lymphadenopathy involving the mediastinum and hilum. Partial obstruction of the proximal LEFT main pulmonary artery due to the LEFT hilar adenopathy. Bilateral thyroid goiter. Small bilateral pleural effusions. Bilateral breast implants and prior LEFT axillary rico dissection. CT abdomen and pelvis was also done: Which showed Severe bilateral hydroureteronephrosis resulting in urinary retention for which Gallegos catheter was placed, UTI was also suspected for which she was on Rocephin. Urine culture grew: Klebsiella pneumonia: She was on ceftriaxone during the hospital stay and was discharged on levofloxacin. Patient family did not wanted any further work-up for right lung mass.Patient family also wanted Gallegos to be removed Knowing the fact removing Gallegos may result in urinary retention and worsening of kidney function frequent UTIs. For her dementia B12 and TSH were checked and it was normal.CT head without contrast no acute intracranial pathology. For her uncontrolled diabetes she was discharged on insulin. Patient had significant weakness and she had high risk for fall, unable to take care of self at home.Hence she was discharged to nursing facility. Physical Exam Narrative: EXAM NARRATIVE: Awake and alert not in acute distress HENMT: COMMON NORMALS: normocephalic and atraumatic HEAD & SCALP: normocephalic and atraumatic Chest: CHEST: Yes Symmetrical chest wall rise Resp: COMMON NORMALS: clear to auscultation bilaterally AUSCULTATION: clear to auscultation bilaterally Cardio: COMMON NORMALS: regular rate, regular rhythm, S1 normal heart sound present, S2 normal heart sound present, No gallops present (Cardio), No murmurs present (Cardio), No rub (Cardio) and Peripheral pulses 2+ throughout RATE: regular rate RHYTHM: regular rhythm HEART SOUNDS: S1 normal heart sound present and S2 normal heart sound present PERIPHERAL PULSES: Peripheral pulses 2+ throughout GI: COMMON NORMALS: Normal to inspection, nondistended, normoactive bowel sounds present, Soft to palpation, non-tender, No hepatosplenomegaly present and no masses AUSCULTATION: Yes normoactive bowel sounds PALPATION: Yes Soft to palpation and Yes No hepatosplenomegaly present RECTAL EXAM: deferred Extremity: COMMON NORMALS: no clubbing, cyanosis or edema and no pedal edema Urinary Catheter Management^: Gallegos: Cath Placed During This Visit: yes Reason for Continuing Indwelling Catheter: Acute Urinary Retention or Obstruction Urinary Catheter Date of Insertion: 09/16/20 Urinary Catheter Time of Insertion: 14:30 Discharge Data Data Completed and Pending: Completed Studies During Hospitalization Category Date Time Status CT abdomen pelvis w con* 25665 Rout ine Cat Scan 09/16/20 11:[address] chest w con* 7 1260 Routine Cat Scan 09/16/20 13:[address] head wo con* 7 0450 Urgent Cat Scan 09/15/20 21:57 Completed Labs from last 24 hours 09/19/20 09/18/20 09/18/20 08:22 19:55 17:07 POC Glucose 234 H 414 H 282 H SARS-CoV-2 Ag (Rap id) 09/18/20 09/18/20 16:34 11:01 POC Glucose 379 H SARS-CoV-2 Ag (Rap id) Negative Vitals: Last Vital Signs Temp 97.7 F 09/19/20 08:00 Pulse 96 09/19/20 08:00 Resp 16 09/19/20 08:00 BP 143/67 09/19/20 08:00 Pulse Ox 94 09/19/20 08:00 Discharge Plan Discharge Patient Disposition: Home Condition: Stable Prescriptions: New aspirin 81 mg tablet,delayed release (DR/EC) 81 mg PO DAILY Qty: 30 RF: 0 lisinopril 20 mg tablet 20 mg PO DAILY Qty: 30 RF: 0 levofloxacin 500 mg tablet 500 mg PO DAILY 3 Days Qty: 3 RF: 0 tamsulosin 0.4 mg capsule 0.4 mg PO DAILY Qty: 30 RF: 0 Lantus Solostar U-100 Insulin 100 unit/mL (3 mL) insulin pen 15 unit SUBCUT DAILY Qty: 3 RF: 0 insulin aspart U-100 100 unit/mL (3 mL) insulin pen 12 unit SUBCUT TID Qty: 3 RF: 0 Discharge Orders: Discharge Order (Routine); Ordered 09/19/20 Ordered By: Aquiles Charlton Referrals: Santo Delgaod MD [Primary Care Provider] - 10/19/20 11:00 am Discharge Diet: Diabetic Discharge Activity: Increase activity as tolerated Patient Instructions: Lisinopril (By mouth), Levofloxacin (By mouth), Tamsulosin (By mouth), Insulin Glargine (Injection), Opioid Safety Discharge Attestations Time Spent in Discharge Care*: less than 30 min Specific Discharge Activities: educating patient, educating and/or supporting family/caregiver, discussing with case finisher/social workers/dc planners, documenting/other paperwork and evaluating patient/reviewing data Status at Discharge: Cognitive status at discharge: mildly impaired cognition, Behavioral status at discharge: cooperative, Functional status at discharge: independent ambulation Overall status at discharge: patient is back to baseline Quality Metrics Clinical Quality Measures During this hospital stay, did patient experience: None Coding Level of Care Code Acute Chg FW DC note Diagnoses Dementia F03.90 Hyperglycemia R73.9 Urinary retention R33.9 Lung mass R91.8 Tobacco dependency F17.200
[2020-09-19 11:11] LABS: Glucose Point of Care 436 mg/dL (70-110)
[2020-09-19 12:00] VITALS: BP 148/77; PULSE 96; RESP 16; TEMP 36.4; O2SAT 95
--- NOTE | 2020-09-19 14:38 | PC.SOCIAL ---
*IMM* Updated IMM. Initialled in chart.
--- NOTE | 2020-09-19 16:11 | PC.NURSE ---
PT HAS DONE WELL FOR ME TODAY. PT DID NOT HAVE ANY COMPLAINTS OF PAIN. PT WAS UP TO THE RESTROOM SEVERAL TIMES TODAY. PT AMBULATED IN THE BERUMEN AND DID WELL. PT DISCHARGED TO [facility] TODAY. PT WAS AGREEABLE AND APPEARED TO BE EXCITED TO GO. REPORT WAS CALLED TO GUI DUDLEY AT [facility]. ALL QUESTIONS WERE ANSWERED. PTS IV WAS REMOVED. CATHETER TIP INTACT. PT TOLERATED REMOVAL OF IV WELL. PT SAFELY DISCHARGED FROM THIS HOSPITAL WITH TRANSPORTATION FROM [facility] AT 1327.
[2020-09-19 16:14] VITALS: BP 148/77; PULSE 96; RESP 16; TEMP 36.4; O2SAT 95
[2020-09-19 18:59] LABS: Glucose Point of Care 250 mg/dL (70-110)
--- NOTE | 2020-09-23 11:09 | PC.SOCIAL ---
Followed up with Damaris Arceo today from Dept of Rehabilitation Aide and she indicates the has a new number [phone] and that the patient will be at [facility] at least two weeks. Son came down to help clean the home and was called by this nurse and he indicates he thinks it is doing fine currently and has no other needs.
== END 2020-09-19 13:27 | disposition skilled nursing facility (03) | DRG 638 ==
LOC: ER 09-16 03:51 → MEDSURG 09-16 04:24
PROVIDERS: Internal Medicine; Admitting Provider Internal Medicine; Emergency Provider Physician Assistant; PCP Family Medicine; Visit Provider Internal Medicine
DX: E11.65 Type 2 diabetes mellitus with hyperglycemia (principal); N13.30 Unspecified hydronephrosis; C34.31 Malignant neoplasm of lower lobe, right bronchus or lung; C78.02 Secondary malignant neoplasm of left lung; J90 Pleural effusion, not elsewhere classified; N39.0 Urinary tract infection, site not specified; F41.9 Anxiety disorder, unspecified; Z85.3 Personal history of malignant neoplasm of breast; Z90.12 Acquired absence of left breast and nipple; Z92.3 Personal history of irradiation; I25.10 Atherosclerotic heart disease of native coronary artery without angina pectoris; Z95.5 Presence of coronary angioplasty implant and graft; J44.9 Chronic obstructive pulmonary disease, unspecified; E78.5 Hyperlipidemia, unspecified; K21.9 Gastro-esophageal reflux disease without esophagitis; I10 Essential (primary) hypertension; F17.210 Nicotine dependence, cigarettes, uncomplicated; M81.0 Age-related osteoporosis without current pathological fracture; D35.2 Benign neoplasm of pituitary gland; E55.9 Vitamin D deficiency, unspecified; Z90.2 Acquired absence of lung [part of]; F03.90 Unspecified dementia, unspecified severity, without behavioral disturbance, psychotic disturbance, mood disturbance, and anxiety; R33.9 Retention of urine, unspecified; B96.1 Klebsiella pneumoniae [K. pneumoniae] as the cause of diseases classified elsewhere; R59.0 Localized enlarged lymph nodes; E04.9 Nontoxic goiter, unspecified
CPT/HCPCS: 36415; 36416; 36600; 51702; 70450; 71260; 74177; 80051; 80053; 80306; 81001; 82009; 82330; 82550; 82553; 82607; 82805; 82962; 83036; 83605; 84443; 85025; 87077; 87086; 87186; 87426; 96361; 96372; 96374; 96376; 97116; 97161; 97530; 99285; G0378; J0696; J1650; J1815 ×2; J7030; J7040; Q9967